=== PATIENT | female | born 1995 | race Caucasian/White ===

== ENCOUNTER 2017-05-30 23:45 | Emergency (ER) | payer SELFPAY ==
[~2017-05-30] VITALS: Ht 162.6 cm; Wt 128.4 kg
[~2017-05-30 23:45] MED LIST: ALBU2.5V4 IH; ALBU8.5HRX INH; CETI10CA PO; FLUT12AE4 IH; FLUT1DIS3 IH; LVT.05T PO; MONT10TA24 PO; NORG1TAB15 PO; VILA40TA PO
--- OUTSIDE RECORDS SUMMARY | 2017-05-30 23:54 | XMS REPORT ---
Author Author ISAK CAMARGO [facility] eClinicalWorks Address Unknown Phone Unavailable Care Team Providers Care Inspector Multifocal Lens Name Role Phone ISAK CAMARGO CP Unavailable Allergies No Known Allergies Problems Problem Type Condition Code Onset Dates Condition Status Problem Unspecified hypothyroidism 244.9 Active Problem Extrinsic asthma, unspecified 493.00 Active Problem Major depression 296.20 Active Assessment Encounter for immunization Z23 Active Medications No Known Medications Procedures Procedure Coding System Code Date SINGLE IMMUNIZATION ADMIN CPT-4 88195 Apr 28, 2015 FLUARIX QUAD (3 & UP)-GSK-2014 CPT-4 21459 Apr 28, 2015 Results No Known Results Immunizations Vaccine Administration Date FLUARIX QUAD (3 & UP)-GSK-2014Apr 28, 2015 Summary Purpose eClinicalWorks Submission
--- OUTSIDE RECORDS SUMMARY | 2017-05-30 23:54 | XMS REPORT ---
Author Author YONATAN ROBERTS Organization eClinicalWorks Address Unknown Phone Unavailable Care Team Providers Care Computing Consultant Name Role Phone YONATAN ROBERTS CP Unavailable Allergies No Known Allergies Problems Problem Type Condition Code Onset Dates Condition Status Problem Major depressive disorder F32.9 Active Problem Mild intermittent asthma without complication J45.20 Active Problem Acquired hypothyroidism E03.9 Active Medications Medication Code System Code Instructions Start Date End Date Status Dosage Diflucan [facility][NOTE 3] [address]-11 150 MG Orally one time February 02, 2016 1 tablet Results No Known Results Summary Purpose eClinicalWorks Submission
--- OUTSIDE RECORDS SUMMARY | 2017-05-30 23:54 | XMS REPORT ---
Author Author ISAK CAMARGO [facility] eClinicalWorks Address Unknown Phone Unavailable Care Team Providers Care Fisher Diving Name Role Phone ISAK CAMARGO Unavailable Allergies No Known Allergies Problems Problem Type Condition Code Onset Dates Condition Status Problem Major depressive disorder F32.9 Active Problem Mild intermittent asthma without complication J45.20 Active Problem Acquired hypothyroidism E03.9 Active Medications No Known Medications Results No Known Results Summary Purpose eClinicalWorks Submission
--- OUTSIDE RECORDS SUMMARY | 2017-05-30 23:54 | XMS REPORT ---
Author Author ISAK CAMARGO [facility] eClinicalWorks Address Unknown Phone Unavailable Care Team Providers Care Commercial Intern Name Role Phone ISAK CAMARGO Unavailable Allergies No Known Allergies Problems Problem Type Condition Code Onset Dates Condition Status Problem Major depressive disorder F32.9 Active Problem Mild intermittent asthma without complication J45.20 Active Problem Acquired hypothyroidism E03.9 Active Medications Medication Code System Code Instructions Start Date End Date Status Dosage Levothyroxine Sodium [facility] [id number] 50 MCG TAKE ONE TABLET BY MOUTH ONCE DAILY Results No Known Results Summary Purpose eClinicalWorks Submission
--- OUTSIDE RECORDS SUMMARY | 2017-05-30 23:54 | XMS REPORT ---
Author IRVIN Wang [facility] eClinicalWorks Address Unknown Phone Unavailable Care Team Providers Care Electrical Tests Supervisor Name Role Phone IRVIN CORTES CP Unavailable Allergies, Adverse Reactions, Alerts Substance Reaction Event Type N.K.D.A. Info Not Available Non Drug Allergy Problems Problem Type Condition Code Onset Dates Condition Status Problem Unspecified hypothyroidism 244.9 Active Problem Extrinsic asthma, unspecified 493.00 Active Problem Major depression 296.20 Active Assessment Bronchitis J40 Active Medications Medication Code System Code Instructions Start Date End Date Status Dosage Doxycycline Hyclate [facility] [address]-45 100 MG Orally every 12 hrs Jun 22, 2015 Jul 02, 2015 1 tablet Sertraline HCl [facility] [address]-70 100 MG Orally Once a day 1 tablet Tri-Sprintec [facility] [address]-64 0.18/0.215/0.25 MG-35 MCG Orally Once a day November 24, 2014 1 tablet Cetirizine HCl [facility] [address]-33 10 MG Orally Once a day 1 tablet as needed Albuterol Sulfate HFA [facility] [address]-30 not defined Advair Diskus [facility] [address]-48 not defined levothyroxine [facility] 0 50 mcg Jul 29, 2014 take 1 tablet by Oral route 1 time per day Procedures Procedure Coding System Code Date DEXAMETHASONE 4MG/ML (PER 1 MG) CPT-4 J1100 Jun 22, 2015 THER/PROPH/DIAG INJ, SC/IM CPT-4 40911 Jun 22, 2015 Office Visit, Est Pt., Level 3 CPT-4 10392 Jun 22, 2015 DEPO MEDROL 40 MG/ML CPT-4 J1030 Jun 22, 2015 Vital Signs Date/Time: Jun 22, 2015 Temperature 97.7 F BMIPercentile 99.57 % Weight 297.5 lbs Height 63 in BMI 52.69 Index Blood Pressure Diastolic 70 mmHg Blood Pressure Systolic 138 mmHg Cardiac Monitoring Heart Rate 90 bpm Wt Percentile 99.65 % Ht Percentile 32.09 % Results No Known Results Summary Purpose eClinicalWorks Submission
--- OUTSIDE RECORDS SUMMARY | 2017-05-30 23:54 | XMS REPORT ---
Author ISAK Castro eClinicalWorks Address Unknown Phone Unavailable Care Team Providers Care Hydrogenation Operator Name Role Phone ISAK CAMARGO Unavailable Allergies, Adverse Reactions, Alerts Substance Reaction Event Type N.K.D.A. Info Not Available Non Drug Allergy Problems Problem Type Condition Code Onset Dates Condition Status Problem Major depressive disorder F32.9 Active Problem Mild intermittent asthma without complication J45.20 Active Problem Acquired hypothyroidism E03.9 Active Assessment Major depressive disorder F32.9 Active Assessment Menometrorrhagia N92.1 Active Assessment Other infective acute otitis externa of right ear H60.391 Active Assessment Acquired hypothyroidism E03.9 Active Medications Medication Code System Code Instructions Start Date End Date Status Dosage Cipro HC [facility] [address]-46 0.2-1 % Otic Twice a day Aug 03, 2015 3 drops into affected ear Tri-Sprintec [facility] [address]-75 0.18/0.215/0.25 MG-35 MCG Orally Once a day Aug 03, 2015 1 tablet Augmentin [facility] [address]-79 875-125 MG Orally every 12 hrs Jul 24, 2015 Aug 03, 2015 1 tablet Albuterol Sulfate HFA [facility] [address]-23 not defined Cetirizine HCl [facility] [address]-86 10 MG Orally Once a day 1 tablet as needed Sertraline HCl [facility] [address]-56 100 MG Orally Once a day 1 tablet levothyroxine [facility] 0 50 mcg orally Once a day Jul 29, 2014 1 tablet Procedures Procedure Coding System Code Date Office Visit, Est Pt., Level 3 CPT-4 04644 Aug 03, 2015 URINE TEST CPT-4 62870 Aug 03, 2015 Vital Signs Date/Time: Aug 03, 2015 Temperature 98.6 F BMIPercentile 99.55 % Weight 307.6 lbs Height 64 in BMI 52.79 Index Blood Pressure Diastolic 76 mmHg Blood Pressure Systolic 124 mmHg Cardiac Monitoring Heart Rate 84 bpm Wt Percentile 99.69 % Ht Percentile 46.89 % Results Name Result Date Reference Range Unit Abnormality Flag TEST, URINE (IN HOUSE) ----RESULTS Negative [id number] ----Lot # [id number] ----Control + [id number] ----Exp date [id number] Summary Purpose eClinicalWorks Submission
--- OUTSIDE RECORDS SUMMARY | 2017-05-30 23:54 | XMS REPORT ---
Author Author PHILIP COLLAZO Organization [facility] Address [address] [place] [address] Care Team Providers Care Obiee Lead Developer Name Role Phone PHILIP COLLAZO Unavailable PROBLEMS Type Condition ICD9-CM Code GNR43-BP Code Onset Dates Condition Status SNOMED Code Problem BMI 50.0-59.9, adult Z68.43 Active 892050137 Problem Seasonal allergic rhinitis, unspecified allergic rhinitis trigger J30.2 Active 287105487 Problem Major depressive disorder F32.9 Active 694674109 Problem Mild intermittent asthma without complication J45.20 Active 861299343 Problem Pure hypercholesterolemia E78.0 Active 206832615 Problem Acquired hypothyroidism E03.9 Active 258159989 ALLERGIES No Known Allergies SOCIAL HISTORY Never Assessed PLAN OF CARE Activity Details Follow Up prn Reason: VITAL SIGNS Height 64 in 2016-08-23 Weight 131.8 lbs 2016-08-23 Temperature 99.0 degrees Fahrenheit 2016-08-23 Heart Rate 80 bpm 2016-08-23 Respiratory Rate 20 2016-08-23 BMI 22.62 kg/m2 2016-08-23 Blood pressure systolic 120 mmHg 2016-08-23 Blood pressure diastolic 82 mmHg 2016-08-23 MEDICATIONS Medication Instructions Dosage Frequency Start Date End Date Duration Status Fluticasone Propionate 50 MCG/ACT Nasally Twice a day 1 spray in each nostril 12h 17 Aug, 2016 30 day(s) Active Albuterol Sulfate HFA Active Cetirizine HCl 10 MG Orally Once a day 1 tablet as needed 24h Active Sertraline HCl 100 MG Orally Once a day 2 tablet 24h 30 days Active Ibuprofen 200 MG Orally every 6 hrs 3-4 tablet as needed 6h Active Levothyroxine Sodium 50 MCG Oral once a day 1 tablet 24h Active Vitamin C 100 MG Orally Once a day 1 tablet 24h Active Tylenol Extra Strength 500 MG Orally every 6 hrs 2 tablets as needed 6h Active RESULTS Name Result Date Reference Range STREP A (IN HOUSE) 2016-08-23 STREP A negative Control + Lot # [id number] Exp date [id number] PROCEDURES Procedure Date Ordered Result Body Site STREP A ASSAY W/OPTIC Aug 23, 2016 DEXAMETHASONE 4MG/ML (PER 1 MG) Aug 23, 2016 DEPO MEDROL 40 MG/ML Aug 23, 2016 THER/PROPH/DIAG INJ, SC/IM Aug 23, 2016 IMMUNIZATIONS Vaccine Route Administration Date Status DEXAMETHASONE 4MG/ML (PER 1 MG) IM Intramuscular Aug 23, 2016 Administered DEPO MEDROL 40 MG/ML IM Intramuscular Aug 23, 2016 Administered MEDICAL (GENERAL) HISTORY Type Description Date Medical History asthma Medical History depression Medical History Hypothyroidism Medical History Major depression Medical History Extrinsic asthma, unspecified Medical History Unspecified hypothyroidism Surgical History tonsillectomy at age 10 Hospitalization History depression/suicide attempt (overdose of Viibryd) 2014
--- OUTSIDE RECORDS SUMMARY | 2017-05-30 23:54 | XMS REPORT ---
Author Author ISAK CAMARGO eClinicalWorks Address Unknown Phone Unavailable Care Team Providers Care Block Engraver Name Role Phone ISAK CAMARGO Unavailable Allergies No Known Allergies Problems Problem Type Condition Code Onset Dates Condition Status Problem Major depressive disorder F32.9 Active Problem Mild intermittent asthma without complication J45.20 Active Problem Acquired hypothyroidism E03.9 Active Assessment Acquired hypothyroidism E03.9 Active Assessment Menometrorrhagia N92.1 Active Medications No Known Medications Procedures Procedure Coding System Code Date LIPID PANEL CPT-4 59849 Feb 05, 2016 COMPREHEN METABOLIC PANEL CPT-4 03439 Feb 05, 2016 COMPLETE CBC W/AUTO DIFF WBC CPT-4 28441 Feb 05, 2016 ASSAY OF FREE THYROXINE CPT-4 13694 Feb 05, 2016 ASSAY THYROID STIM HORMONE CPT-4 82178 Feb 05, 2016 VENIPUNCT, ROUTINE* CPT-4 46113 Feb 05, 2016 Results No Known Results Summary Purpose eClinicalWorks Submission
--- OUTSIDE RECORDS SUMMARY | 2017-05-30 23:55 | XMS REPORT ---
Author Author SHERYL ABRAMSICE Organization [facility] Address [address] [place] [address] Care Team Providers Care Meal Room Hand Name Role Phone DIVYA ABRAMS Unavailable PROBLEMS Type Condition ICD9-CM Code JFN74-AK Code Onset Dates Condition Status SNOMED Code Problem BMI 50.0-59.9, adult Z68.43 Active 636895312 Problem Seasonal allergic rhinitis, unspecified allergic rhinitis trigger J30.2 Active 409974754 Problem Major depressive disorder F32.9 Active 154220327 Problem Mild intermittent asthma without complication J45.20 Active 163608447 Problem Pure hypercholesterolemia E78.0 Active 650495627 Problem Acquired hypothyroidism E03.9 Active 834928183 ALLERGIES No Known Allergies SOCIAL HISTORY Never Assessed PLAN OF CARE Activity Details Follow Up prn Reason: VITAL SIGNS Height 64 in 2016-09-10 Weight 310.4 lbs 2016-09-10 Temperature 99.4 degrees Fahrenheit 2016-09-10 Heart Rate 100 bpm 2016-09-10 Respiratory Rate 20 2016-09-10 BMI 53.27 kg/m2 2016-09-10 Blood pressure systolic 128 mmHg 2016-09-10 Blood pressure diastolic 90 mmHg 2016-09-10 MEDICATIONS Medication Instructions Dosage Frequency Start Date End Date Duration Status Levothyroxine Sodium 50 MCG Oral once a day 1 tablet 24h Active Tylenol Extra Strength 500 MG Orally every 6 hrs 2 tablets as needed 6h Active Amoxicillin 500 MG Orally every 12 hrs 1 tablet 12h Sep, Sep, 10 days Active Ibuprofen 200 MG Orally every 6 hrs 3-4 tablet as needed 6h Active Sertraline HCl 100 MG Orally Once a day 2 tablet 24h 30 days Active RESULTS Name Result Date Reference Range STREP A (IN HOUSE) 2016-09-10 STREP A positive Control + Lot # [id number] Exp date [id number] UA LONG DIP (IN HOUSE) 2016-09-10 Lot # [id number] Exp date 2017-08-06 Clarity clear Color yellow Odor none GLU negative SHYANN negative KET negative SG 1.020 BLO negative pH 7.0 Protein negative URO 0.2 NIT negative DARIEN negative Lot # [id number] Exp date 2017-08 PROCEDURES Procedure Date Ordered Result Body Site URINALYSIS, AUTO, W/O SCOPE September 10, 2016 STREP A ASSAY W/OPTIC September 10, 2016 IMMUNIZATIONS No Known Immunizations MEDICAL (GENERAL) HISTORY Type Description Date Medical History asthma Medical History depression Medical History Hypothyroidism Medical History Major depression Medical History Extrinsic asthma, unspecified Medical History Unspecified hypothyroidism Surgical History tonsillectomy at age 10 Hospitalization History depression/suicide attempt (overdose of Viibryd) 2014
--- OUTSIDE RECORDS SUMMARY | 2017-05-30 23:55 | XMS REPORT | Continuity of Care Document ---
Author Author [facility] Organization [facility] Address Unknown Phone Unavailable Allergies Active Description Code Type Severity Reaction Onset Reported/Identified Relationship to Patient Clinical Status Yes No Known Drug Allergies [id number] Drug Allergy Unknown N/ A 10/11/2014 Medications Problems Date Dx Coded Attending Type Code Diagnosis Diagnosed By 06/25/2013 ISAK CAMARGO MD 465.9 UPPER RESPIRATORY INFECTION 06/25/2013 ISAK CAMARGO MD V04.81 FLU SHOT 06/25/2013 ISAK CAMARGO MD 465.9 UPPER RESPIRATORY INFECTION 06/25/2013 ISAK CAMARGO MD V04.81 FLU SHOT 06/25/2013 ISAK CAMARGO MD 465.9 UPPER RESPIRATORY INFECTION 06/25/2013 ISAK CAMARGO MD V04.81 FLU SHOT 06/25/2013 FADI MARTINEZ MADINA R 465.9 UPPER RESPIRATORY INFECTION 06/25/2013 FADI MARTINEZ MADINA R V04.81 FLU SHOT 06/25/2013 JAMIA RACHEL APRN R 465.9 UPPER RESPIRATORY INFECTION 06/25/2013 JAMIA RACHEL APRN R V04.81 FLU SHOT 06/25/2013 ISAK CAMARGO MD 465.9 UPPER RESPIRATORY INFECTION 06/25/2013 ISAK CAMARGO MD V04.81 FLU SHOT 06/25/2013 KEMAL GAYLE DOA K 465.9 UPPER RESPIRATORY INFECTION 06/25/2013 GAYLE KEMAL MIRANDAA K V04.81 FLU SHOT 06/25/2013 GAYLE KEMAL MIRANDAA K 465.9 UPPER RESPIRATORY INFECTION 06/25/2013 GAYLE DO SUELLEN K V04.81 FLU SHOT 06/25/2013 ISAK CAMARGO MD 465.9 UPPER RESPIRATORY INFECTION 06/25/2013 ISAK CAMARGO MD V04.81 FLU SHOT 06/25/2013 ISAK CAMARGO MD 465.9 UPPER RESPIRATORY INFECTION 06/25/2013 ISAK CAMARGO MD V04.81 FLU SHOT 06/25/2013 ISAK CAMARGO MD N 465.9 UPPER RESPIRATORY INFECTION 06/25/2013 ISAK CAMARGO MD V04.81 FLU SHOT 07/20/2013 ISAK CAMARGO MD N 244.9 UNSPECIFIED ACQUIRED HYPOTHYROIDISM 07/20/2013 ISAK CAMARGO MD N 493.00 EXTRINSIC ASTHMA UNSPECIFIED 07/20/2013 ISAK CAMARGO MD 244.9 UNSPECIFIED ACQUIRED HYPOTHYROIDISM 07/20/2013 ISAK CAMARGO MD N 493.00 EXTRINSIC ASTHMA UNSPECIFIED 07/20/2013 FADI CONCRETE SPREADER, MADINA R 244.9 UNSPECIFIED ACQUIRED HYPOTHYROIDISM 07/20/2013 FADI CONCRETE SPREADER, MADINA R 493.00 EXTRINSIC ASTHMA UNSPECIFIED 07/20/2013 VIRGINIE CASTELLANOSN, JAMIA R 244.9 UNSPECIFIED ACQUIRED HYPOTHYROIDISM 07/20/2013 VIRGINIE CONCRETE SPREADER, JAMIA R 493.00 EXTRINSIC ASTHMA UNSPECIFIED 07/20/2013 ISAK CAMARGO MD 244.9 UNSPECIFIED ACQUIRED HYPOTHYROIDISM 07/20/2013 ISAK CAMARGO MD N 493.00 EXTRINSIC ASTHMA UNSPECIFIED 07/20/2013 SUELLEN GAYLE DO K 244.9 UNSPECIFIED ACQUIRED HYPOTHYROIDISM 07/20/2013 SUELLEN GAYLE DO K 493.00 EXTRINSIC ASTHMA UNSPECIFIED 07/20/2013 SUELLEN GAYLE DO K 244.9 UNSPECIFIED ACQUIRED HYPOTHYROIDISM 07/20/2013 SUELLEN GAYLE DO K 493.00 EXTRINSIC ASTHMA UNSPECIFIED 07/20/2013 ISAK CAMARGO MD 244.9 UNSPECIFIED ACQUIRED HYPOTHYROIDISM 07/20/2013 ISAK CAMARGO MD N 493.00 EXTRINSIC ASTHMA UNSPECIFIED 07/20/2013 ISAK CAMARGO MD N 244.9 UNSPECIFIED ACQUIRED HYPOTHYROIDISM 07/20/2013 ISAK CAMARGO MD N 493.00 EXTRINSIC ASTHMA UNSPECIFIED 07/20/2013 ISAK CAMARGO MD 244.9 UNSPECIFIED ACQUIRED HYPOTHYROIDISM 07/20/2013 ISAK CAMARGO MD N 493.00 EXTRINSIC ASTHMA UNSPECIFIED 07/28/2013 ISAK CAMARGO MD V03.89 MENINGOCOCCAL DX 07/28/2013 ISAK CAMARGO MD V06.1 TDAP DX 07/28/2013 FADI CONCRETE SPREADER, MADINA R V03.89 MENINGOCOCCAL DX 07/28/2013 FADI CASTELLANOSN, MADINA R V06.1 TDAP DX 07/28/2013 AWA RACHEL APRNIA R V03.89 MENINGOCOCCAL DX 07/28/2013 AWA RACHEL APRNIA R V06.1 TDAP DX 07/28/2013 ISAK CAMARGO MD N V03.89 MENINGOCOCCAL DX 07/28/2013 ISAK CAMARGO MD N V06.1 TDAP DX 07/28/2013 NALINI MIRANDA, SUELLEN K V03.89 MENINGOCOCCAL DX 07/28/2013 GAYLE DO, SUELLEN K V06.1 TDAP DX 07/28/2013 GAYLE DO, SUELLEN K V03.89 MENINGOCOCCAL DX 07/28/2013 GAYLE DO, SUELLEN K V06.1 TDAP DX 07/28/2013 ISAK CAMARGO MD N V03.89 MENINGOCOCCAL DX 07/28/2013 ISAK CAMARGO MD N V06.1 TDAP DX 07/28/2013 ISAK CAMARGO MD V03.89 MENINGOCOCCAL DX 07/28/2013 ISAK CAMARGO MD N V06.1 TDAP DX 07/28/2013 ISAK CAMARGO MD N V03.89 MENINGOCOCCAL DX 07/28/2013 ISAK CAMARGO MD N V06.1 TDAP DX 11/09/2013 FADI MARTINEZ, MADINA R 786.2 COUGH 11/09/2013 AWA RACHEL APRNIA R 786.2 COUGH 11/09/2013 ISAK CAMARGO MD N 786.2 COUGH 11/09/2013 SUELLEN GAYLE DO K 786.2 COUGH 11/09/2013 KEMAL GAYLE DOA K 786.2 COUGH 11/09/2013 ISAK CAMARGO MD N 786.2 COUGH 11/09/2013 ISAK CAMARGO MD N 786.2 COUGH 11/09/2013 ISAK CAMARGO MD N 786.2 COUGH 01/06/2014 JAMIA RACHEL APRN R 380.10 OTITIS EXTERNA RIGHT 01/06/2014 ISAK CAMARGO MD N 380.10 OTITIS EXTERNA RIGHT 01/06/2014 KEMAL GAYLE DOA K 380.10 OTITIS EXTERNA RIGHT 01/06/2014 KEMAL GAYLE DOA K 380.10 OTITIS EXTERNA RIGHT 01/06/2014 ISAK CAMARGO MD N 380.10 OTITIS EXTERNA RIGHT 01/06/2014 ISAK CAMARGO MD N 380.10 OTITIS EXTERNA RIGHT 01/06/2014 ISAK CAMARGO MD N 380.10 OTITIS EXTERNA RIGHT 04/15/2014 NALINI DO, SUELLEN K 461.9 SINUSITIS ACUTE 04/15/2014 NALINI MIRANDA, SUELLEN K 461.9 SINUSITIS ACUTE 04/15/2014 ISAK CAMARGO MD N 461.9 SINUSITIS ACUTE 04/15/2014 ISAK CAMARGO MD N 461.9 SINUSITIS ACUTE 04/15/2014 ISAK CAMARGO MD N 461.9 SINUSITIS ACUTE 06/10/2014 NALINI MIRANDA SUELLEN K 112.0 CANDIDIASIS OF MOUTH 06/10/2014 ISAK CAMARGO MD N 112.0 CANDIDIASIS OF MOUTH 06/10/2014 ISAK CAMARGO MD N 112.0 CANDIDIASIS OF MOUTH 06/10/2014 ISAK CAMARGO MD N 112.0 CANDIDIASIS OF MOUTH 07/20/2014 NALINI MIRANDA, SUELLEN K 935.2 FOREIGN BODY IN STOMACH 07/20/2014 ISAK CAMARGO MD N 935.2 FOREIGN BODY IN STOMACH 07/20/2014 ISAK CAMARGO MD N 935.2 FOREIGN BODY IN STOMACH 07/20/2014 ISAK CAMARGO MD N 935.2 FOREIGN BODY IN STOMACH 09/29/2014 ISAK CAMARGO MD N 780.60 FEVER, UNSPECIFIED 09/29/2014 ISAK CAMARGO MD N 780.60 FEVER, UNSPECIFIED 10/12/2014 GAYLE DO, SUELLEN K Ot 244.9 10/12/2014 GAYEL DO, SUELLEN K Ot 278.00 10/12/2014 GAYLE DO, SUELLEN K Ot 311 10/12/2014 GAYLE DO, SUELLEN K Ot 493.00 10/12/2014 GAYLE DO, SUELLEN K Ot 780.09 10/12/2014 GAYLE DO, SUELLEN K Ot 959.4 10/12/2014 GAYLE DO, SUELLEN K Ot 969.00 10/12/2014 GAYLE DO, SUELLEN K Ot E917.4 10/12/2014 GAYLE DO, SUELLEN K Ot E950.3 10/12/2014 GAYLE DO, SUELLEN K Ot V03.82 10/12/2014 SUELLEN GAYLE DO Ot V85.42 10/20/2014 ISAK CAMARGO MD 296.20 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 Visit Date/Time Discharge Status Pt. Type Provider Facility Loc./Unit Complaint [id number] 10/11/2014 04:00:00 2014 14:11:00 DIS Inpatient SUELLEN GAYLE DO [facility] [id number] 10/20/2014 15:52:00 10/20/2014 23: 59:59 CLS Outpatient ISAK CAMARGO MD [id number] 09/29/2014 10:29:00 09/29/2014 23: 59:59 CLS Outpatient ISAK CAMARGO MD [id number] 07/20/2014 15:18:00 07/20/2014 23: 59:59 CLS Outpatient ISAK CAMARGO MD [id number] 06/10/2014 14:46:00 06/10/2014 23: 59:59 CLS Outpatient SUELLEN GAYLE DO [id number] 04/15/2014 13:27:00 04/15/2014 23: 59:59 CLS Outpatient SUELLEN GAYLE DO [id number] 01/11/2014 11:19:00 01/11/2014 23: 59:59 CLS Outpatient ISAK CAMARGO MD [id number] 01/06/2014 13:20:00 01/06/2014 23: 59:59 CLS Outpatient JAMIA RACHEL APRN [id number] 11/09/2013 14:35:00 11/09/2013 23: 59:59 CLS Outpatient MADINA APONTE APRN [id number] 07/20/2013 09:58:00 07/20/2013 23: 59:59 CLS Outpatient ISAK CAMARGO MD [id number] 07/20/2013 09:58:00 07/20/2013 23: 59:59 CLS Outpatient ISAK CAMARGO MD [id number] 06/25/2013 13:40:00 06/25/2013 23: 59:59 CLS Outpatient ISAK CAMARGO MD
--- OUTSIDE RECORDS SUMMARY | 2017-05-30 23:55 | XMS REPORT ---
Author Author YONATAN ROBERTS [facility] eClinicalWorks Address Unknown Phone Unavailable Care Team Providers Care Human Factors Engineer Name Role Phone YONATAN ROBERTS CP Unavailable Allergies, Adverse Reactions, Alerts Substance Reaction Event Type N.K.D.A. Info Not Available Non Drug Allergy Problems Problem Type Condition Code Onset Dates Condition Status Problem Major depressive disorder F32.9 Active Problem Mild intermittent asthma without complication J45.20 Active Problem Acquired hypothyroidism E03.9 Active Assessment Lymphadenopathy R59.1 Active Assessment Left wrist pain M25.532 Active Medications Medication Code System Code Instructions Start Date End Date Status Dosage Albuterol Sulfate HFA [facility] [address]-29 not defined Vitamin C [facility] [address]-88 100 MG Orally Once a day 1 tablet Cetirizine HCl [facility] [address]-42 10 MG Orally Once a day 1 tablet as needed Ibuprofen [facility] [address]-71 200 MG Orally every 6 hrs 3-4 tablet as needed Tylenol Extra Strength [facility] [address]-42 500 MG Orally every 6 hrs 2 tablets as needed Augmentin [facility] [address]-56 875-125 MG Orally every 12 hrs January 23, 2016 February 02, 2016 1 tablet Sertraline HCl [facility] [address]-92 100 MG Orally Once a day 1 tablet levothyroxine [facility] 0 50 mcg orally Once a day Jul 29, 2014 1 tablet Procedures Procedure Coding System Code Date COMPLETE CBC W/AUTO DIFF WBC CPT-4 17560 January 23, 2016 Office Visit, Est Pt., Level 4 CPT-4 36352 January 23, 2016 HETEROPHILE ANTIBODIES CPT-4 47937 January 23, 2016 VENIPUNCT, ROUTINE* CPT-4 90638 January 23, 2016 Vital Signs Date/Time: January 23, 2016 Cardiac Monitoring Heart Rate 88 bpm Weight 318.4 lbs Height 64 in BMIPercentile 99.54 % Wt Percentile 99.73 % Blood Pressure Diastolic 82 mmHg Blood Pressure Systolic 132 mmHg Results No Known Results Summary Purpose eClinicalWorks Submission
--- OUTSIDE RECORDS SUMMARY | 2017-05-30 23:55 | XMS REPORT ---
Author Author ISAK CAMARGO [facility] eClinicalWorks Address Unknown Phone Unavailable Care Team Providers Care Carbon Coater Machine Operator Name Role Phone ISAK CAMARGO Unavailable Allergies No Known Allergies Problems Problem Type Condition Code Onset Dates Condition Status Problem Major depression 296.20 Active Problem Unspecified hypothyroidism 244.9 Active Problem Hypothyroidism, unspecified type E03.9 Active Problem Extrinsic asthma, unspecified 493.00 Active Medications Medication Code System Code Instructions Start Date End Date Status Dosage Sertraline HCl [facility] [address]-27 100 MG Orally Once a day 1 tablet Results No Known Results Summary Purpose eClinicalWorks Submission
--- OUTSIDE RECORDS SUMMARY | 2017-05-30 23:55 | XMS REPORT ---
Author Author MARTINEZ RUIZ Organization eClinicalWorks Address Unknown Phone Unavailable Care Team Providers Care Birthing Nurse Name Role Phone MARTINEZ RUIZ CP Unavailable Allergies, Adverse Reactions, Alerts Substance Reaction Event Type N.K.D.A. Info Not Available Non Drug Allergy Problems Problem Type Condition Code Onset Dates Condition Status Assessment Hypothyroidism, unspecified type E03.9 Active Assessment Acute sinusitis, unspecified J01.90 Active Medications Medication Code System Code Instructions Start Date End Date Status Dosage Augmentin [facility] [address]-77 875-125 MG Orally every 12 hrs Jul 24, 2015 Aug 03, 2015 1 tablet levothyroxine ND 0 50 mcg orally Once a day Jul 29, 2014 1 tablet Sertraline HCl [facility] [address]-45 100 MG Orally Once a day 1 tablet Procedures Procedure Coding System Code Date ASSAY OF FREE THYROXINE CPT-4 64310 Jul 24, 2015 VENIPUNCT, ROUTINE* CPT-4 64178 Jul 24, 2015 ASSAY THYROID STIM HORMONE CPT-4 91825 Jul 24, 2015 Office Visit, Est Pt., Level 3 CPT-4 11635 Jul 24, 2015 Vital Signs Date/Time: Jul 24, 2015 Temperature 98.0 F BMIPercentile 99.53 % Weight 301 lbs Height 64 in BMI 51.66 Index Blood Pressure Diastolic 78 mmHg Blood Pressure Systolic 121 mmHg Cardiac Monitoring Heart Rate 80 bpm Wt Percentile 99.66 % Ht Percentile 46.99 % Results No Known Results Summary Purpose eClinicalWorks Submission
--- OUTSIDE RECORDS SUMMARY | 2017-05-30 23:55 | XMS REPORT ---
Author IRVIN Wang [facility] eClinicalWorks Address Unknown Phone Unavailable Care Team Providers Care Extension Work Instructor Name Role Phone IRVIN CORTES CP Unavailable Allergies, Adverse Reactions, Alerts Substance Reaction Event Type N.K.D.A. Info Not Available Non Drug Allergy Problems Problem Type Condition Code Onset Dates Condition Status Problem Major depressive disorder F32.9 Active Problem Mild intermittent asthma without complication J45.20 Active Problem Acquired hypothyroidism E03.9 Active Assessment Bronchitis J40 Active Medications Medication Code System Code Instructions Start Date End Date Status Dosage Doxycycline Hyclate [facility] [address]-77 100 MG Orally every 12 hrs October 20, 2015 October 30, 2015 1 capsule PredniSONE [facility] [address]-50 10 mg Orally twice a day October 20, 2015 October 25, 2015 1 tablet Cetirizine HCl [facility] [address]-33 10 MG Orally Once a day 1 tablet as needed Sertraline HCl [facility] [address]-55 100 MG Orally Once a day 1 tablet levothyroxine [facility] 0 50 mcg orally Once a day Jul 29, 2014 1 tablet Albuterol Sulfate HFA [facility] [address]-15 not defined Tri-Sprintec [facility] [address]-49 0.18/0.215/0.25 MG-35 MCG Orally Once a day Aug 03, 2015 1 tablet Procedures Procedure Coding System Code Date DEXAMETHASONE 4MG/ML (PER 1 MG) CPT-4 J1100 October 20, 2015 THER/PROPH/DIAG INJ, SC/IM CPT-4 73943 October 20, 2015 Office Visit, Est Pt., Level 4 CPT-4 19774 October 20, 2015 DEPO MEDROL 40 MG/ML CPT-4 J1030 October 20, 2015 Vital Signs Date/Time: October 20, 2015 Temperature 97.8 F BMIPercentile 99.53 % Weight 307.1 lbs Height 64 in BMI 52.71 Index Blood Pressure Diastolic 82 mmHg Blood Pressure Systolic 140 mmHg Cardiac Monitoring Heart Rate 88 bpm Wt Percentile 99.69 % Ht Percentile 46.7 % Results No Known Results Summary Purpose eClinicalWorks Submission
[2017-05-31] MEDS ORDERED: SERT100T8 (00:03)
--- NOTE | 2017-05-31 00:55 | ED Cough/URI ---
General Chief Complaint: Respiratory Problems Stated Complaint: SOB,CONGESTION Nursing Triage Note: C/O FEELING SOA TODAY Source: patient, family Exam Limitations: no limitations History of Present Illness Time seen by provider: 00:55 Initial Comments 21-year-old feel patient presents to the emergency department with complaints of shortness of air beginning this a.m. when she woke up. Patient does have a history of asthma, but states she does not use her inhalers like she is supposed to. States she also has not been coughing, because "I don't like to cough." Family reports patient "absolutely refuses to cough. Patient is supposed to be on 2 different inhalers. Patient does have a nebulizer machine and albuterol nebs at home, but "refuses to use them." Patient is exposed to secondhand smoke occasionally. Patient denies personal history of smoking. Denies fever, chills, nausea, vomiting. Does complain of nasal congestion and mild sore throat. Denies taking any medications at home. Timing/Duration: this morning, getting worse Severity/Quality: moderate, other (see history of present illness) Prior Episodes/Possible Cause: occasional episodes Modifying Factors: Worse With Activity Allergies and Home Medications Allergies Coded Allergies: No Known Drug Allergies (Unverified , 10/11/14) Home Medications Ciprofloxacin HCl 500 Mg Tablet, 500 MG PO BID, #14 Ref 0 Prescribed by: RAFAELA FARAH on 05/31/17148 Famotidine 20 Mg Tablet, 20 MG PO BID, #20 Ref 0 Prescribed by: RAFAELA FARAH on 05/31/17148 Levothyroxine Sodium 50 Mcg Tablet, 50 MCG PO DAILY, (Reported) Prednisone 20 Mg Tab, 40 MG PO DAILY, #10 Ref 0 Prescribed by: RAFAELA FARAH on 05/31/17148 Sertraline HCl 100 Mg Tablet, (Reported) Constitutional: No chills, No dizziness, No fever, malaise EENTM: see HPI, nose congestion, throat pain, No ear discharge, No ear pain Respiratory: see HPI, No cough (patient reports the sensation of needing to cough, but refuses to cough), dyspnea on exertion, No orthopnea, phlegm ( patient reports chest congestion, but denies coughing up phlegm), short of breath, No stridor, wheezing Cardiovascular: no symptoms reported Gastrointestinal: No abdominal pain, No constipation, No diarrhea, No nausea, No vomiting Genitourinary: no symptoms reported : No Musculoskeletal: no symptoms reported Skin: no symptoms reported Psychiatric/Neurological: No Symptoms Reported Immunological/Allergic: no symptoms reported All Other Systems Reviewed Negative Unless Noted: Yes (Negative excepted noted.) Past Tqzrewg-Wvboru-Zokypc Hx Patient Social History Alcohol Use: Denies Use Recreational Drug Use: No Smoking Status: Never a Smoker 2nd Hand Smoke Exposure: No Recent Foreign Travel: No Contact w/Someone Who Travel: No Recent Infectious Disease Expo: No Recent Hopitalizations: No Immunizations Up To Date Tetanus Booster (TDap): Unknown Seasonal Allergies Seasonal Allergies: Yes Surgeries History of Surgeries: Yes Surgeries: Adenoidectomy, Tonsillectomy Respiratory History of Respiratory Disorde: Yes Respiratory Disorders: Asthma Cardiovascular History of Cardiac Disorders: No Neurological History of Neurological Disord: No Reproductive System Hx Reproductive Disorders: No Sexually Transmitted Disease: No Genitourinary History of Genitourinary Disor: No Gastrointestinal History of Gastrointestinal Di: No Musculoskeletal History of Musculoskeletal Dis: No Endocrine History of Endocrine Disorders: Yes Endocrine Disorders: Hypothyroidsim HEENT History of HEENT Disorders: No Cancer History of Cancer: No Psychosocial History of Psychiatric Problem: No (suicide attempt 10/11/14) Behavioral Health Disorders: Anxiety, Suicide Attempts, Violent Behavior, Depression Integumentary History of Skin or Integumenta: No Blood Transfusions History of Blood Disorders: No Adverse Reaction to a Blood Tr: No Reviewed Nursing Assessment Reviewed/Agree w Nursing PMH: Yes Family Medical History Significant Family History: No Pertinent Family Hx Family Medial History: Colitis 19 MOTHER DVT 19 MOTHER Hypertension 19 MOTHER G8 SISTER Prostate cancer 19 FATHER Thyroid disease 19 MOTHER (thyroid cancer) Vertigo 19 MOTHER Physical Exam Vital Signs Vital Sign - Last 12Hours 05/31/17 05/31/17 00:03 02:00 Temp 99.2 Pulse 103 Resp 18 B/P (MAP) 169/97 Pulse Ox 97 O2 Delivery Room Air Capillary Refill : General Appearance: WD/WN, no apparent distress, obese HEENT: PERRL/EOMI, TMs normal, pharyngeal erythema, other (positive nasal congestion noted ) Neck: non-tender, full range of motion, supple, normal inspection Respiratory: no respiratory distress, no accessory muscle use, decreased breath sounds (decreased breath sounds bilateral bases), wheezing (mild end expiratory wheezing noted bilaterally), expiration Cardiovascular: normal peripheral pulses, no edema, no murmur, tachycardia Gastrointestinal: normal bowel sounds, non tender, soft, No distended Extremities: no pedal edema, normal capillary refill Neurologic/Psychiatric: alert, normal mood/affect, oriented x 3 Skin: normal color, warm/dry Progress/Results/Core Measures Suspected Sepsis SIRS Temperature:99.2 Pulse: Respiratory Rate: Blood Pressure / Mean: Results/Orders My Orders Orders - RAFAELA FARAH PA Chest Pa/Lat (2 View) (05/31/17 01:01) Albuterol/Ipra Inhalation Soln (Duoneb I (05/31/17 01:15) Svn Sm Volume Nebulizer Rt-Rfs (05/31/17 01:01) Methylprednisolone Sod Succ (Solu-Medrol (05/31/17 01:15) Rx-Albuterol Inhaler (Rx-Proair) (05/31/17 01:41) Levofloxacin Tablet (Levaquin Tablet) (05/31/17 01:45) Medications Given in ED Vital Signs/I&O Vital Sign - Last 12Hours 05/31/17 05/31/17 00:03 02:00 Temp 99.2 98.7 Pulse 103 97 Resp 18 18 B/P (MAP) 169/97 Pulse Ox 97 O2 Delivery Room Air Room Air Capillary Refill : Diagnostic Imaging Diagonstic Imaging: Xray Plain Films/CT/US/NM/MRI: chest Comments No acute cardiopulmonary findings noted Reviewed: Reviewed/Discussed (with Dr. Vazquez) Departure Communication (Admissions) Progress Notes Diagnostic findings discussed with the patient. Patient shows improved breath sounds bilaterally following the albuterol nebulizer treatment. Lungs are now clear to auscultation without wheezing, rhonchi or rales. No respiratory distress or accessory muscle use noted. I have educated patient on using her albuterol nebulizer, albuterol inhaler, and medications prescribed by her primary care provider. We'll plan for discharge to home with oral ciprofloxacin , albuterol, and prednisone. Patient to follow-up with her primary care provider for recheck and further management. All return precautions were discussed with the patient. Patient verbalizes understanding and agrees with the treatment plan. Impression Impression: Primary Impression: Acute bronchitis with asthma with acute exacerbation Disposition: HOME, SELF-CARE Condition: Improved Departure-Patient Inst. Decision time for Depature: 01:47 Referrals: ISAK CAMARGO MD (PCP/Family) Primary Care Physician Patient Instructions: Asthma, Adult (DC), Acute Bronchitis, Adult (DC) Add. Discharge Instructions: All discharge instructions reviewed with patient and/or family. Voiced understanding. Medications as instructed. Albuterol nebulizer as instructed at home by the prescribing physician. Tylenol extra strength [id number] as directed for pain or fever. Ibuprofen 800 mg by mouth every 8 hours as needed for pain or fever. Push fluids. Cool humidifier if needed. Throat lozenges and sprays [id number] as directed for throat pain. Follow-up with your primary care provider if no improvement in symptoms in 3-5 days. Return to the emergency department for worsened symptoms or any other concerns. Scripts Prednisone (Prednisone) 20 Mg Tab 40 MG PO DAILY, #10 TAB 0 Refills Prov: RAFAELA FARAH 05/31/17 Famotidine (Pepcid) 20 Mg Tablet 20 MG PO BID, #20 TAB 0 Refills Prov: RAFAELA FARAH 05/31/17 Ciprofloxacin HCl (Ciprofloxacin HCl) 500 Mg Tablet 500 MG PO BID, #14 TAB 0 Refills Prov: RAFAELA FARAH 05/31/17 RAFAELA FARAH May 31, 2017 00:55
[2017-05-31] MEDS ORDERED: RT-ALBUTEROL/IPRATROPIUM 3 ML (DUONEB) VIAL INH ONE (01:15)
[2017-05-31] MEDS ORDERED: methylPREDNISolone 125 MG (Solu-MEDROL) VIAL IM ONE (01:15)
[2017-05-31] MEDS ORDERED: RX-ALBUTEROL INHALER (PROAIR) 8 GM IH STA (01:41)
[2017-05-31] MEDS ORDERED: LEVOFLOXACIN 500 MG TAB (LEVAQUIN) PO ONE (01:45)
[2017-05-31] MEDS ORDERED: FAMO-119 PO (01:49)
[2017-05-31] MEDS ORDERED: CIPR500T4 PO (01:49)
[2017-05-31] MEDS ORDERED: PRD20T PO (01:49)
--- NOTE | 2017-05-31 07:30 | Diagnostic Imaging Report ---
INDICATION: Shortness of breath. COMPARISON: None. FINDINGS: Two views of the chest are obtained. Heart size is normal. The pulmonary vessels appear unremarkable. There is no pneumothorax, mediastinal widening or pleural fluid demonstrated. The lungs are clear. Osseous structures appear unremarkable. IMPRESSION: Negative chest. Dictated by: Dictated on workstation # [id number]
== END 2017-05-31 02:00 | disposition home or self-care (01) ==
LOC: EDUNIT# 23:45 → ER 23:50
DX: J45.901 Unspecified asthma with (acute) exacerbation (principal); J20.9 Acute bronchitis, unspecified; E03.9 Hypothyroidism, unspecified; F41.9 Anxiety disorder, unspecified; F32.9 Major depressive disorder, single episode, unspecified; Z91.5 Personal history of self-harm; Z80.42 Family history of malignant neoplasm of prostate; Z77.22 Contact with and (suspected) exposure to environmental tobacco smoke (acute) (chronic); Z90.89 Acquired absence of other organs
CPT/HCPCS: 71020; 99284

== ENCOUNTER → 2019-07-13 | Outpatient (CLI) | payer SELFPAY ==
[~2019-07-13] MED LIST changes: +CIPR500T4 PO; +FAMO-119 PO; +PRD20T PO; +SERT100T8
--- NOTE | 2019-07-13 12:22 | Diagnostic Imaging Report ---
PROCEDURE: US PELVIC (NON OB) TECHNIQUE: Multiple real-time grayscale images were obtained over the pelvis in various projections transabdominally. INDICATION: Irregular menses. Uterus measures 7.4 x 3.2 x 4.6 cm. Endometrium is 10 mm in thickness. No myometrial mass is identified. Right ovary measures 2.9 x 3.9 x 2.4 cm and the left ovary measures 4.1 x 2.3 x 3.5 cm. There is blood flow to the ovaries. No adnexal mass or free fluid is detected. IMPRESSION: Unremarkable pelvic ultrasound. Dictated by: Dictated on workstation # [id number]
== END ==
LOC: RAD 09:19
PROVIDERS: ATTEND Family Medicine
DX: N92.6 Irregular menstruation, unspecified (principal)
CPT/HCPCS: 76856

== ENCOUNTER → 2019-07-15 | Outpatient (CLI) | payer SELFPAY ==
--- NOTE | 2019-07-15 08:55 | Diagnostic Imaging Report ---
PROCEDURE: US Abdomen, limited. TECHNIQUE: Multiple realtime grayscale images were obtained over the abdomen in various projections. INDICATION: Elevated ALT. FINDINGS: Liver is enlarged measuring up to 25 cm. No discrete liver mass is identified. The portal vein is patent and shows normal direction of flow. Gallbladder is without stones or sludge. No wall thickening or biliary ductal dilatation is identified. The pancreas is unremarkable. Aorta is nonaneurysmal. IVC is patent. Right kidney is without calculi or hydronephrosis. There is no ascites. IMPRESSION: 1. Hepatomegaly. No discrete liver mass is detected. 2. No evidence of cholelithiasis or acute cholecystitis. Dictated by: Dictated on workstation # [id number]
== END ==
LOC: RAD 07:03
PROVIDERS: ATTEND Family Medicine
DX: R74.0 Nonspecific elevation of levels of transaminase and lactic acid dehydrogenase [LDH] (principal); R16.0 Hepatomegaly, not elsewhere classified
CPT/HCPCS: 76705

== ENCOUNTER 2022-10-13 19:18 | Emergency (ER) | payer SELFPAY ==
[~2022-10-13] VITALS: Ht 157 cm; Wt 147.8 kg
[~2022-10-13 19:18] MED LIST changes: -CIPR500T4 PO; +CIPR500T5 PO; +SERT-414; -SERT100T8
[2022-10-13 19:28] VITALS: BP 154/95
--- NOTE | 2022-10-13 20:02 | ED Head Injury ---
General Chief Complaint: Laceration Stated Complaint: HEAD LAC Nursing Triage Note: pt presents to ED with a small lac to right forehead/hairline area after a broom fell and hit her. pt has headache but denies vision changes. bleeding controlled at this time. had tetanus shot 1 month ago. Source: patient Exam Limitations: no limitations History of Present Illness Date Seen by Provider: Oct 13, 2022 Time Seen by Provider: 19:59 Initial Comments Patient is a 26-year-old female presents ED with a head injury. This occurred around 7:00. She states a broom with a jose guadalupe screw on the and fell off the rafters about 4 feet hitting her left frontal scalp. This resulted in a 1 cm superficial laceration. Extensive bleeding. She states she felt lightheaded and dizzy but that has improved. Bleeding controlled. Denies of any current visual changes, head pain, dizziness, vomiting, nausea. She is up-to-date on her tetanus. Moving all extremities without difficulties Allergies and Home Medications Allergies Coded Allergies: No Known Drug Allergies (Unverified , 10/11/14) Patient Home Medication List Home Medication List Reviewed: Yes Ciprofloxacin HCl (Ciprofloxacin HCl) 500 Mg Tablet, 500 MG PO BID Prescribed by: RAFAELA FARAH on 05/31/17148 Famotidine (Pepcid) 20 Mg Tablet, 20 MG PO BID Prescribed by: RAFAELA FARAH on 05/31/17148 Levothyroxine Sodium (Levothyroxine 50 Mcg Tab) 50 Mcg Tablet, 50 MCG PO DAILY, (Reported) Entered as Reported by: BILL VICTORIA on 10/11/14 0235 Prednisone (Prednisone) 20 Mg Tab, 40 MG PO DAILY Prescribed by: RAFAELA FARAH on 05/31/17 014 Sertraline HCl (Sertraline HCl) 100 Mg Tablet, (Reported) Entered as Reported by: BILL VICTORIA on 05/31/17 0003 Review of Systems Review of Systems Constitutional: No chills, No diaphoresis, No fever, No malaise Eyes: Denies Drainage, Denies Decreased Acuity Ears, Nose, Mouth, Throat: denies ear pain, denies ear discharge Respiratory: No cough, No dyspnea on exertion Cardiovascular: No chest pain Gastrointestinal: No abdominal pain, No diarrhea, No nausea, No vomiting Genitourinary: No decreased output, No discharge Musculoskeletal: No back pain, No joint pain Skin: change in color, other (Scalp laceration) All Other Systems Reviewed Negative Unless Noted: Yes Past Tmssiyd-Mhyqqg-Syycxs Hx Patient Social History Tobacco Use?: No Substance use?: No Alcohol Use?: No Pt feels they are or have been: No Immunizations Up To Date Tetanus Booster (TDap): Unknown Influenza Vaccine Up-to-Date: Yes; Up-to-Date Seasonal Allergies Seasonal Allergies: Yes Past Medical History Surgeries: Yes Adenoidectomy, Tonsillectomy Respiratory: Yes Asthma Cardiac: No Neurological: No Reproductive Disorders: No Sexually Transmitted Disease: No Genitourinary: No Gastrointestinal: No Musculoskeletal: No Endocrine: Yes Hypothyroidsim HEENT: No Cancer: No Psychosocial: No (suicide attempt 10/11/14) Anxiety, Suicide Attempts, Violent Behavior, Depression Integumentary: No Blood Disorders: No Adverse Reaction/Blood Tranf: No Family Medical History Colitis 19 MOTHER DVT 19 MOTHER Hypertension 19 MOTHER G8 SISTER Prostate cancer 19 FATHER Thyroid disease 19 MOTHER (thyroid cancer) Vertigo 19 MOTHER No Pertinent Family Hx Physical Exam Vital Signs Vital Signs - First Documented 10/13/22 19:28 Temp 36.8 Pulse 110 Resp 24 B/P (MAP) 154/95 (114) Pulse Ox 99 O2 Delivery Room Air Capillary Refill : Less Than 3 Seconds Height, Weight, BMI Height: 5'4.00" Weight: 283lbs. 0oz. 128.889180nb; 59.00 BMI Method:Stated General Appearance: WD/WN, no apparent distress HEENT: PERRL/EOMI, normal ENT inspection, TMs normal, pharynx normal, other (1 cm superficial laceration to his left scalp. No adipose involvement. No active bleeding. Tissue approximated) Neck: non-tender, full range of motion, supple, normal inspection Cardiovascular: regular rate, rhythm, no edema, no gallop, no JVD Respiratory: chest non-tender, lungs clear, normal breath sounds, no respiratory distress, no accessory muscle use Gastrointestinal: normal bowel sounds, non tender, soft, no organomegaly Back: normal inspection, no CVA tenderness, no vertebral tenderness Extremities: normal range of motion, non-tender, normal inspection, no pedal edema, no calf tenderness Crainal Nerves: normal hearing, normal speech, PERRL Coordination/Gait: normal finger to nose, normal gait Motor/Sensory: no motor deficit, no sensory deficit Skin: other (1 cm laceration to the left frontal scalp. No adipose involvement. No crepitus or step-off.) Jeronimo Coma Score Best Eye Response: (4) Open Spontaneously Best Verbal Response: (5) Oriented Best Motor Response: (6) Obeys Commands Jeronimo Total: 15 Progress/Results/Core Measures Results/Orders Vital Signs/I&O 10/13/22 19:28 Temp 36.8 Pulse 110 Resp 24 B/P (MAP) 154/95 (114) Pulse Ox 99 O2 Delivery Room Air Blood Pressure Mean: 114 Departure Communication (PCP) Reviewed previous ER visits, H&P. Small 1 cm superficial laceration to the left frontal scalp. No loss of consciousness. Patient Had mild headache, dizziness and lightheadedness after the injury but those symptoms have improved. No neurological red flag findings. On exam no active bleeding. Irrigated with normal saline and chlorhexidine. Skin appears to be approximated. She is up-to-date on her tetanus. GCS 15. Alert and orient x3. Discussed with patient not necessarily concern for fracture or brain bleed. Do not think laura are necessarily needed. Skin is approximated. The laceration did get irritated nad had mild bleeding after cleaning but did stop after direct pressure. Recommend continue pressure, Neosporin twice a day. Discussed wound care. No evidence of concussion symptoms. She does not appear toxic or septic. Return precautions were discussed. Provided work note. Impression Primary Impression: Scalp laceration Disposition: HOME, SELF-CARE Condition: Stable Departure-Patient Inst. Decision time for Depature: 20:01 Referrals: ISAK CAMARGO MD (PCP/Family) Primary Care Physician Patient Instructions: Wound Care Add. Discharge Instructions: Recommend Neosporin topical to prevent infection. If any worsening symptoms such as extreme head pain, visual changes, unilateral muscle weakness return back to ED. All discharge instructions reviewed with patient and/or family. Voiced understanding. Work/School Note: Work Release Form Date Seen in the Emergency Department: Oct 13, 2022 Return to Work: Oct 15, 2022 MELANIA XIONG Oct 13, 2022 20:02
== END 2022-10-13 20:10 | disposition home or self-care (01) ==
LOC: EDUNIT# 19:18 → ER 19:20
DX: S01.01XA Laceration without foreign body of scalp, initial encounter (principal); W17.89XA Other fall from one level to another, initial encounter; W22.8XXA Striking against or struck by other objects, initial encounter
CPT/HCPCS: 99282